=== PATIENT | female | born 1950 | race African-American/Black ===

== ENCOUNTER 2021-12-25 14:53 | Inpatient (IN) | payer OTHER, SELFPAY ==
[2021-12-25 16:14] LABS: #Monocytes 1.7 10x3/uL (0.0-1.1); #Neutrophils 9.8 10x3/uL (1.5-8.4); %Basophils 0.2 % (0.0-2.0); %Eosinophils 0.2 % (0.0-6.0); %Lymphocytes 12.3 % (18.0-47.0); %Monocytes 12.6 % (0.0-10.0); %Neutrophils 74.4 % (40.0-75.0); Hemoglobin 11.2 g/dL (12.0-15.5); Mean Corpuscular HGB CONC 32.7 g/dL (32.0-36.0); Mean Corpuscular Hemoglobin 26.6 pg (27.0-33.0); Mean Corpuscular Volume 81.5 fl (81.6-98.3); Mean Platelet Volume 10.4 fl (7.4-10.4); Platelet Count 289 10x3/uL (150-450); RBC Distribution Width 13.8 % (11.5-14.5); Red Blood Cell (RBC) Count 4.21 10x6/uL (3.90-5.03); White Blood Cell (WBC) Count 13.1 10x3/uL (3.5-10.5)
[2021-12-25 16:38] LABS: ALT (SGPT) 17 U/L (8-55); AST (SGOT) 15 U/L (5-34); Albumin 3.6 g/dL (3.4-4.8); Alkaline Phosphatase 52 U/L (40-110); Anion Gap 13 mmol/L (10-20); BUN (Urea Nitrogen) 12 mg/dL (9.8-20.1); Calc. Creatinine Clearance 0 mL/min (70-130); Calcium 9.4 mg/dL (7.8-10.44); Carbon Dioxide 28 mmol/L (23-31); Chloride 99 mmol/L (98-107); Globulin 3.4 g/dL (2.4-3.5); Glucose 189 mg/dL (83-110); Magnesium 2.1 mg/dL (1.6-2.6); Sodium 137 mmol/L (136-145)
[2021-12-25 17:08] LABS: Potassium 2.9 mmol/L (3.5-5.1)
[2021-12-25] MEDS ORDERED: Acetaminophen 325 MG TAB ONE (17:37)
[2021-12-25] MEDS ORDERED: Potassium Chloride 20 MEQ TAB ONE (17:37)
[2021-12-25] MEDS ORDERED: Azithromycin 500 MG VIAL ONE (17:38)
[2021-12-25] MEDS ORDERED: cefTRIAXone\\ROCEPHIN 2 GM VIAL ONE (17:38)
[2021-12-25] MEDS ORDERED: Enoxaparin Sodium 80 MG/0.8 ML SYRINGE ONE (18:53)
[2021-12-25] MEDS ORDERED: Dextrose 50% Abboject 50 ML SYRINGE SLOW IVP PRN (19:54)
[2021-12-25] MEDS ORDERED: Dextrose 5% in Water 1,000 ML IV PRN (19:54)
[2021-12-25 20:42] LABS: Magnesium 2.1 mg/dL (1.6-2.6)
[2021-12-25 20:47] VITALS: BMI 27.3
[2021-12-25 20:47] LABS: SARS-CoV-2 NAA Rapid Test Not Detected (NotDetected)
[2021-12-25] MEDS: Potassium Chloride 20 MEQ TAB PO SCH (21:21)
[2021-12-26] MEDS: Potassium Chloride 20 MEQ TAB PO SCH (00:39)
[2021-12-26 04:35] LABS: #Monocytes 1.8 10x3/uL (0.0-1.1); #Neutrophils 8.7 10x3/uL (1.5-8.4); %Basophils 0.3 % (0.0-2.0); %Eosinophils 0.3 % (0.0-6.0); %Lymphocytes 12.6 % (18.0-47.0); %Monocytes 14.9 % (0.0-10.0); %Neutrophils 71.4 % (40.0-75.0); Hemoglobin 10.9 g/dL (12.0-15.5); Mean Corpuscular HGB CONC 32.4 g/dL (32.0-36.0); Mean Corpuscular Hemoglobin 26.5 pg (27.0-33.0); Mean Corpuscular Volume 81.8 fl (81.6-98.3); Mean Platelet Volume 10.5 fl (7.4-10.4); Platelet Count 280 10x3/uL (150-450); RBC Distribution Width 13.9 % (11.5-14.5); Red Blood Cell (RBC) Count 4.11 10x6/uL (3.90-5.03); White Blood Cell (WBC) Count 12.2 10x3/uL (3.5-10.5)
[2021-12-26 04:52] LABS: Anion Gap 14 mmol/L (10-20); BUN (Urea Nitrogen) 11 mg/dL (9.8-20.1); Calc. Creatinine Clearance 74 mL/min (70-130); Carbon Dioxide 26 mmol/L (23-31); Chloride 107 mmol/L (98-107); Glucose 188 mg/dL (83-110); Potassium 3.7 mmol/L (3.5-5.1); Sodium 143 mmol/L (136-145)
[2021-12-26] MEDS ORDERED: Metoprolol Tartrate 5 MG/5 ML VIAL IVP SCH (05:45)
[2021-12-26] MEDS ORDERED: Losartan 25 MG TAB PO SCH (05:45)
[2021-12-26] MEDS ORDERED: Enoxaparin Sodium 80 MG/0.8 ML SYRINGE SC SCH (06:00)
[2021-12-26] MEDS: Carvedilol 6.25 MG TAB PO SCH ×2 (08:08→17:03)
[2021-12-26] MEDS: Acetaminophen 325 MG TAB PO PRN (08:08)
[2021-12-26] MEDS: HumaLOG 300 UNITS/3 ML VIAL SC PRN (17:08)
[2021-12-26] MEDS: Apixaban 5 MG TAB PO SCH (20:45)
[2021-12-27] MEDS ORDERED: Losartan 25 MG TAB ONE (08:20)
[2021-12-27] MEDS: Apixaban 5 MG TAB PO SCH ×2 (08:22→20:32)
[2021-12-27] MEDS: Carvedilol 6.25 MG TAB PO SCH ×2 (08:22→17:31)
[2021-12-27] MEDS: Losartan 25 MG TAB PO SCH ×2 (08:23→20:32)
[2021-12-27] MEDS ORDERED: Losartan 25 MG TAB PO SCH (09:00)
[2021-12-27] MEDS ORDERED: HYDROCHLOROTHIAZIDE 12.5 MG PO SCH (10:51)
[2021-12-27] MEDS ORDERED: Hydrochlorothiazide 25 MG TAB PO SCH (11:00)
[2021-12-27] MEDS: Acetaminophen 325 MG TAB PO PRN (17:35)
[2021-12-27] MEDS: HumaLOG 300 UNITS/3 ML VIAL SC PRN (20:36)
[2021-12-28] MEDS: Losartan 25 MG TAB PO SCH (08:58)
[2021-12-28] MEDS: Carvedilol 6.25 MG TAB PO SCH (08:58)
[2021-12-28] MEDS: Apixaban 5 MG TAB PO SCH (08:59)
[2021-12-28] MEDS ORDERED: Hydrochlorothiazide 25 MG TAB PO SCH (09:00)
[2021-12-28] MEDS ORDERED: hydrALAZINE 20 MG/ML VIAL SLOW IVP PRN (11:08)
[2021-12-28 11:49] VITALS: BP 192/77; TEMP 98
== END 2021-12-28 16:28 | disposition home or self-care (01) | DRG 175 ==
LOC: CSHERS 14:53 → CSHTELE 20:39
PROVIDERS: ADMIT Family Medicine; ATTEND Family Medicine
DX: I26.99 Other pulmonary embolism without acute cor pulmonale (principal); J18.9 Pneumonia, unspecified organism; Z20.822 Contact with and (suspected) exposure to COVID-19; E87.6 Hypokalemia; I10 Essential (primary) hypertension; E11.9 Type 2 diabetes mellitus without complications; Z96.642 Presence of left artificial hip joint
CPT/HCPCS: 0240U; 36415; 36416; 71045; 71275; 80048; 80053; 83605; 83735; 84484; 85025; 93005; 94760; 96365; 96367; 96372; J0360; J0456; J0696; J1650; J1815

== ENCOUNTER 2022-07-17 13:18 | Emergency (ER) | payer OTHER, SELFPAY ==
[2022-07-17] MEDS ORDERED: Ondansetron PF 4 MG/2 ML Vial ONE (13:39)
[2022-07-17] MEDS ORDERED: Boostrix 0.5 ML (Tdap) VIAL (>/=7 yrs of age) ONE (13:39)
[2022-07-17] MEDS ORDERED: Morphine 4 MG/ML VIAL ONE (13:39)
[2022-07-17 13:45] LABS: Actual Bicarbonate (HCO3v) 28 mEq/L (22-28); Base Excess 4.3 mEq/L (-2.0 to +3.0); Calcium, Ionized (venous) 1.03 mmol/L (1.16-1.32); Chloride (VBG) 107 mmol/L (98-106); Hemoglobin (Hb) 12.3 g/dL (11.7-16.1); Potassium (VBG) 7.04 mmol/L (3.70-5.30); Puncture Site Other Site; RapidComm Collect By CBN; Sodium 138.9 mmol/L (133-146); pH (venous) 7.49 (7.32-7.43)
[2022-07-17 15:44] LABS: ALT (SGPT) 35 U/L (8-55); AST (SGOT) 32 U/L (5-34); Albumin 3.8 g/dL (3.4-4.8); Alkaline Phosphatase 50 U/L (40-110); Anion Gap 13 mmol/L (10-20); BUN (Urea Nitrogen) 11 mg/dL (9.8-20.1); Bilirubin, Total 0.7 mg/dL (0.2-1.2); Calc. Creatinine Clearance 0 mL/min (70-130); Calcium 8.7 mg/dL (7.8-10.44); Carbon Dioxide 26 mmol/L (23-31); Chloride 107 mmol/L (98-107); Estimated GFR 78; Glucose 109 mg/dL (83-110); Potassium 3.7 mmol/L (3.5-5.1); Protein, Total 6.8 g/dL (5.8-8.1); Sodium 142 mmol/L (136-145)
== END 2022-07-17 16:42 | disposition home or self-care (01) ==
LOC: CSHERS 13:18
DX: S52.571A Other intraarticular fracture of lower end of right radius, initial encounter for closed fracture (principal); S00.83XA Contusion of other part of head, initial encounter; S40.011A Contusion of right shoulder, initial encounter; I10 Essential (primary) hypertension; E11.9 Type 2 diabetes mellitus without complications; W01.0XXA Fall on same level from slipping, tripping and stumbling without subsequent striking against object, initial encounter
CPT/HCPCS: 29105; 36415; 70450; 70486; 71045; 72125; 80053; 82805; 90471; 90715; 96374; 96375; J2270; J2405